=== PATIENT | male | born 1985 | race Caucasian/White ===

== ENCOUNTER 2023-04-17 13:21 | Emergency (ER) | payer OTHER, SELFPAY ==
--- NOTE | ~2023-04-17 | XR_ITS ---
PA, oblique, and lateral views of the left fifth finger CLINICAL HISTORY: Trauma FINDINGS: There is a transverse mildly displaced fracture at the proximal shaft of the fifth proximal phalanx. No intra-articular extension. Remaining osseous structures and joint spaces are intact. Sof t tissues are unremarkable. IMPRESSION: Transverse, minimally displaced fracture of the proximal shaft of the fifth proximal phalanx. Reviewed, dictated and finalized at location . IMPRESSION: Transverse, minimally displaced fracture of the proximal shaft of the fifth pro ximal phalanx.
[2023-04-17 13:37] VITALS: BP 141/87; PULSE 71; RESP 16; TEMP 36.8; O2SAT 99
--- NOTE | 2023-04-17 13:52 | ED.UPPEXIN ---
HPI - Extremity Injury (Upper) General Stated Complaint: lEFT LITTLE FINGER HAPPENED AT WORK Source: patient and RN notes reviewed History of Present Illness HPI narrative: 37 yo M presents to urgent care with complaints of left pinky finger pain. Pt states [employer], he was at work where he was using the crank to lower a casket into the ground. Pt states his hands were sweaty and the handle to the crank slipped and begun spinning out of control, hitting his left pinky finger a few times. Pt denies any other injury. Denies any numbness or tingling. Related Data Allergies Allergy/AdvReac Type Severity Reaction Status Date / Time No Known Allergies Allergy Verified 04/17/23 14:03 Review of Systems Review of Systems: CONSTITUTIONAL: Denies fever, chills, or sweats. EYES: Denies visual changes, redness, or discharge. ENT: Denies otalgia and sore throat CARDIOVASCULAR: Denies chest pain, palpitations, or edema. RESPIRATORY: Denies cough or dyspnea. GASTROINTESTINAL: Denies abdominal pain, nausea, vomiting, or diarrhea. GENITOURINARY: Denies dysuria or hematuria. SKIN: Denies rash or itching. MUSCULOSKELETAL: Left pinky finger pain and swelling NEUROLOGIC: Denies headache, numbness, or weakness. Pertinent positives per HPI. PMFSH Comments At the time of my signature, I reviewed and agree with the nursing past medical, surgical, social, and family history. There is no relevant family history pertinent to the patient complaint. Exam Narrative: GENERAL: This is a well-nourished, well-developed patient, in no apparent distress. HEAD: normocephalic, atraumatic. EYES: Sclera clear/white. Vision is grossly intact. EARS: External ears normal, auditory canals clear and without drainage, TMs normal without perforation. Hearing grossly intact. NOSE: External nose normal with no obvious nasal discharge, nares without redness, no rhinorrhea. THROAT: Mucous membranes moist, posterior pharynx clear. NECK: Neck supple, non-tender without lymphadenopathy, masses or thyromegaly. CARDIOVASCULAR: Regular rate and rhythm without murmurs, gallops, or rubs. RESPIRATORY: Clear to auscultation. Breath sounds equal bilaterally. No wheezes, rales, or rhonchi. GASTROINTESTINAL: Abdomen soft, non-tender, nondistended. Bowel sounds are active. No hepato-splenomegaly, or palpable masses. No guarding. SKIN: warm, intact with no suspicious lesions or rash, good texture and turgor. NEURO: awake, alert, and oriented to person, place and time. There were no obvious focal neurologic abnormalities. EXTREMITIES: Left pinky finger, proximal phalanx, tender and edematous. Cap refill < 3 sec. BACK: Nontender without deformity or crepitus. No flank tenderness. Course Course Level of Care: Express Care Visit Vital Signs Vital signs: Vital Signs Temperature 98.3 F 04/17/23 13:37 Pulse Rate 71 04/17/23 13:37 Respiratory Rate 16 04/17/23 13:37 Blood Pressure 141/87 H 04/17/23 13:37 Pulse Oximetry 99 04/17/23 13:37 Oxygen Delivery Room Air 04/17/23 13:37 Temperature 98.3 F 04/17/23 13:37 Pulse Rate 71 04/17/23 13:37 Respiratory Rate 16 04/17/23 13:37 Blood Pressure 141/87 H 04/17/23 13:37 Pulse Oximetry 99 04/17/23 13:37 Oxygen Delivery Room Air 04/17/23 13:37 Reviewed MDM - Extremity Injury (Upper) MDM Narrative Medical decision making narrative: Use the RICE method at home. May take ibuprofen and/or Tylenol if needed. Follow up with hand specialist this next week. Differential Diagnosis Differential diagnosis: Likely finger sprain, dislocation of finger and other (Finger fracture) Imaging Data Radiologist's impression: [facility] [place] [address] XRay Report Signed Patient: El [place] : 1985 MR#: [id number] Age/Sex: 37 / M Acct:[id number] Loc: [facility]? ? ADM Date: 04/17/23Attending Dr: Ordering Physician: Maggi
== END 2023-04-17 14:10 | disposition home or self-care (01) ==
PROVIDERS: Emergency Provider Nurse Practitioner Family
DX: S62.617A Displaced fracture of proximal phalanx of left little finger, initial encounter for closed fracture (principal); W22.8XXA Striking against or struck by other objects, initial encounter; Y99.0 Civilian activity done for income or pay
CPT/HCPCS: 29130; 73140; 99214; G0463

== ENCOUNTER 2023-08-07 12:05 | Emergency (ER) | payer OTHER, SELFPAY ==
[2023-08-07 12:14] VITALS: BP 133/82; PULSE 84; RESP 16; TEMP 37.1; O2SAT 99
[2023-08-07 12:18] VITALS: BP 133/82; PULSE 84; RESP 16; TEMP 37.1; O2SAT 99
--- NOTE | 2023-08-07 12:48 | ED.URI ---
HPI - URI/Sore Throat General Chief Complaint: Upper Respiratory Infection Stated Complaint: throat/congestion History of Present Illness HPI Narrative: PATIENT PRESENTS WITH COUGHING CONGESTION. PATIENT HAS BEEN TAKING DAYQUIL FOR HIS SYMPTOMS. NO SHORTNESS OF BREATH AND NO CHEST PAIN. Related Data Allergies Allergy/AdvReac Type Severity Reaction Status Date / Time No Known Allergies Allergy Verified 08/07/23 12:16 Review of Systems Review of Systems: CONSTITUTIONAL: DENIES CHILLS, OR SWEATS. REPORTS FEVER AND GENERALIZED BODY ACHES EYES: DENIES VISUAL CHANGES, REDNESS, OR DISCHARGE. ENT: DENIES OTALGIA. REPORTS NASAL CONGESTION RUNNY NOSE AND SORE THROAT CARDIOVASCULAR: DENIES CHEST PAIN, PALPITATIONS, OR EDEMA. RESPIRATORY: DENIES DYSPNEA. REPORTS OCCASIONAL COUGH GASTROINTESTINAL: DENIES ABDOMINAL PAIN, NAUSEA, VOMITING, OR DIARRHEA. GENITOURINARY: DENIES DYSURIA OR HEMATURIA. SKIN: DENIES RASH OR ITCHING. MUSCULOSKELETAL: DENIES BACK PAIN, JOINT PAIN, OR MYALGIA. REPORTS GENERALIZED BODY ACHES NEUROLOGIC: DENIES HEADACHE, NUMBNESS, OR WEAKNESS. PSYCHIATRIC: DENIES ANXIETY OR DEPRESSION. PMFSH Comments AT TIME OF SIGNATURE, AGREE WITH NURSING PAST MEDICAL, SURGICAL, SOCIAL AND FAMILY HISTORY. THERE IS NO RELEVANT FAMILY HISTORY PERTINENT TO THE PRESENTING COMPLAINT Exam Narrative: THE PATIENT IS A WELL-DEVELOPED, WELL-NOURISHED IN NO ACUTE DISTRESS. SKIN: SKIN IS WARM AND DRY WITHOUT ERYTHEMA, SWELLING OR EXUDATE. THERE IS GOOD TURGOR. NO TENTING. HEAD: ATRAUMATIC. NORMOCEPHALIC. NO TEMPORAL OR SCALP TENDERNESS. EYES: MOIST AND BRIGHT. SCLERA AND CONJUNCTIVAE NORMAL. NO DISCHARGE. PERRLA. EXTRAOCULAR MOTIONS INTACT. GROSS VISUAL ACUITY INTACT. EARS: PINNA IS NORMAL SHAPE AND CONTOUR. CLEAR EXTERNAL AUDITORY CANALS. TM [place] WITH GOOD CONE OF LIGHT, NO ERYTHEMA OR SUPPURATION. BILATERAL CERUMEN NOTED NO GROSS HEARING DEFICIT. NOSE: PINK, MOIST MUCOSA WITH GOOD AIR MOVEMENT. CLEAR RHINORRHEA WITHOUT NASAL FLARING. SEPTUM MIDLINE. MOUTH: MOIST MUCOUS MEMBRANES. THROAT; MILD ERYTHEMA NOTED TO POSTERIOR OROPHARYNX WITH MODERATE POSTNASAL DRAINAGE. WITHOUT EXUDATE OR ULCERATION.. UVULA MIDLINE. NORMAL MOVEMENT OF SOFT PALATE. NECK: SUPPLE AND NONTENDER WITH FULL RANGE OF MOTION WITHOUT DISCOMFORT. NO MENINGEAL SIGNS. LUNGS: EQUAL AND BILATERAL BREATH SOUNDS WITHOUT WHEEZES, RALES OR RHONCHI. CHEST: THE CHEST WALL IS WITHOUT RETRACTIONS OR USE OF ACCESSORY MUSCLES. HEART: HAS A REGULAR RATE AND RHYTHM WITHOUT MURMUR, GALLOPS, CLICK OR RUB. ABDOMEN: SOFT, NONTENDER WITH POSITIVE ACTIVE BOWEL SOUNDS. NO REBOUND TENDERNESS. EXTREMITIES: WITHOUT CYANOSIS, CLUBBING OR EDEMA. EQUAL 2+ DISTAL PULSES AND 2 SECOND CAPILLARY REFILL NOTED. NEUROLOGIC: ALERT, ACTIVE, . THE PATIENT MOVES ALL EXTREMITIES WITH NORMAL MUSCLE STRENGTH. NORMAL MUSCLE TONE IS NOTED. NORMAL COORDINATION IS NOTED. NO FOCAL NEUROLOGICAL FINDINGS NOTED. Course Course Level of Care: Express Care Visit Vital Signs Vital signs: Vital Signs Temperature 37.1 C 08/07/23 12:14 Pulse Rate 84 08/07/23 12:14 Respiratory Rate 16 08/07/23 12:14 Blood Pressure 133/82 08/07/23 12:14 Pulse Oximetry 99 08/07/23 12:14 Oxygen Delivery Room Air 08/07/23 12:14 Temperature 37.1 C 08/07/23 12:18 Pulse Rate 84 08/07/23 12:18 Respiratory Rate 16 08/07/23 12:18 Blood Pressure 133/82 08/07/23 12:18 Pulse Oximetry 99 08/07/23 12:18 Oxygen Delivery Room Air 08/07/23 12:18 Discharge Plan Discharge Clinical Impression: Upper respiratory infection, Bronchitis Patient Disposition: Home, Self-Care Condition: Stable Instructions: Antibiotic Form, Upper Respiratory Infection (DC) Additional Instructions: TAKE MEDICATIONS PRESCRIBED. RETURN FOR WORSENING SIGNS OR SYMPTOMS RETURN IF FACIAL PAIN INCREASES, FEVER, WORSENING SYMPTOMS, SHORTNESS OF BREATH, CHEST PAIN, PRODUCTIVE COUGH OR DIFFICULTY SWALLOWIN
== END 2023-08-07 12:55 | disposition home or self-care (01) ==
PROVIDERS: Emergency Provider Nurse Practitioner Family
DX: J06.9 Acute upper respiratory infection, unspecified (principal); J40 Bronchitis, not specified as acute or chronic
CPT/HCPCS: 99213; G0463

== ENCOUNTER 2023-09-24 18:25 | Emergency (ER) | payer OTHER, SELFPAY ==
[2023-09-24 19:35] VITALS: BP 127/78; PULSE 75; RESP 16; TEMP 37.1; O2SAT 97
--- NOTE | 2023-09-24 20:09 | ED.URI ---
HPI - URI/Sore Throat General Chief Complaint: Upper Respiratory Infection Stated Complaint: Fatigue/Runny Nose Time Seen by Provider: 09/24/23 20:00 Source: patient, RN notes reviewed and old records reviewed Mode of arrival: ambulatory Limitations: no limitations History of Present Illness HPI Narrative: 38 year old male presents to [facility] care with complaints of sore throat for 2 days, fatigue and nasal congestion with drainage for one week duration. Patient reports that he has been sleeping a lot. Patient reports that he has had known exposure to strep from family member. He states that he has been taking Sudafed PE and Ibuprofen. MD elicited complaint: cough, sore throat, rhinorrhea and nasal congestion Onset (ago): week(s) (1) Severity: mild Pain scale (0-10): 2 Able to tolerate fluids by mouth: Yes Treatments prior to arrival: ibuprofen and other (Sudafed PE) Related Data Allergies Allergy/AdvReac Type Severity Reaction Status Date / Time No Known Allergies Allergy Verified 08/07/23 12:16 Review of Systems Review of Systems: CONSTITUTIONAL: Denies malaise, chills, sweats, or fever. EYES: Denies visual changes, redness, or discharge. ENT: Reports rhinorrhea, congestion, sinus pain, no otalgia positive for sore throat. CARDIOVASCULAR: Denies chest pain, palpitations, or edema. RESPIRATORY: Reports cough.? Denies dyspnea. GASTROINTESTINAL: Denies abdominal pain, nausea, vomiting, diarrhea SKIN: Denies rash or itching. MUSCULOSKELETAL: Denies myalgia.reports fatigue NEUROLOGIC: Denies headache. All systems reviewed & are unremarkable except as noted in HPI and below PMFSH Past Medical History Medical History (Updated 09/28/23 @ 09:21 by Karolina Figueroa NP) Hand fracture, right Social History Social History (Updated 09/28/23 @ 09:19 by Karolina Figueroa NP) Smoking packs per day: 1 Smoking cigarettes per day: 20.0 Smoking status: Current every day smoker Tobacco type: cigarettes Alcohol intake: current Alcohol use details: social Substance use type: does not use Living arrangements: with family Gender identity (if verbalized by the patient): Male Comments At time of signature, agree with nursing past medical, surgical, social and family history. There is no relevant family history pertinent to the presenting complaint Exam Narrative: GENERAL: Well-appearing, well-nourished, and in no acute distress. HEAD: Normocephalic EYES: PERRLA, conjunctivae clear ENT: Nares clear, turbinates edematous and erythematous, clear discharge. Mucous membranes moist. TM pearly gupta with dull light reflex bilaterally; no tragal tenderness. Oropharynx erythematous without lesions. Tonsils mildly enlarged and without exudate, no drooling, no hoarseness, no trismus, uvula midline.post nasal drainage NECK: Supple. lymphadenopathy CHEST: Clear to auscultation, breath sounds equal. No wheezing, rhonchi, rales, or stridor. No respiratory distress, speaks in full sentences.SAO2 97% on room air HEART: Regular rate and rhythm. No murmur heard. SKIN: Warm, dry, no rash. NEURO: Alert and oriented x3. PSYCH: Normal mood and affect Course Course Emergency Course: Patient is aware of diagnosis, understands and agrees to treatment plan.? Anticipatory guidance given.? Patient agrees to follow-up as directed and is aware of reasons to seek care at the emergency department. Portions of this record may have been created with voice recognition software Level of Care: Express Care Visit Vital Signs Vital signs: Vital Signs Temperature 37.1 C 09/24/23 19:35 Pulse Rate 75 09/24/23 19:35 Respiratory Rate 16 09/24/23 19:35 Blood Pressure 127/78 09/24/23 19:35 Pulse Oximetry 97 09/24/23 19:35 Oxygen Delivery Room Air 09/24/23 19:35 Temperature 37.1 C 09/24/23 19:35 Pulse Rate 75 09/24/23 19:35 Respiratory Rate 16 09/24/23 19:35 Blood Pressure 12
== END 2023-09-24 20:20 | disposition home or self-care (01) ==
PROVIDERS: Emergency Provider Registered Nurse
DX: J02.9 Acute pharyngitis, unspecified (principal); Z20.818 Contact with and (suspected) exposure to other bacterial communicable diseases; F17.210 Nicotine dependence, cigarettes, uncomplicated
CPT/HCPCS: 36416; 86308; 87081; 87880; 99213; G0463